=== PATIENT | female | born 1990 | race Caucasian/White ===

== ENCOUNTER → 2016-11-07 | Outpatient (CLI) | payer OTHER ==
--- NOTE | 2016-11-07 11:55 | REP ---
Left tibia-fibula three views: There is a spiral fracture of the distal fibula. No other fracture is identified. Mineralization joint spaces are normal. No calcifications or foreign bodies. Signed by Federico Webb MD 11/07/2016 11:46 A
--- NOTE | 2016-11-07 11:56 | REP ---
Left ankle five views: There is a spiral fracture of the distal fibula. The mortise is symmetric. Mineralization is normal. There are no calcifications or foreign bodies. Impression: Spiral fracture of the distal fibula. Signed by Federico Webb MD 11/07/2016 11:47 A
== END ==
LOC: M LRY 11:05
PROVIDERS: ATTEND Physician Assistant
DX: S82.442A Displaced spiral fracture of shaft of left fibula, initial encounter for closed fracture (principal); M25.572 Pain in left ankle and joints of left foot; M79.605 Pain in left leg; X58.XXXA Exposure to other specified factors, initial encounter; Y92.89 Other specified places as the place of occurrence of the external cause; Y93.89 Activity, other specified; Y99.8 Other external cause status